=== PATIENT | male | born 1960 | race Caucasian/White ===

== ENCOUNTER 2024-12-02 01:44 | Emergency (ER) | payer OTHER, SELFPAY ==
[2024-12-02 01:48] VITALS: BP 184/118
--- NOTE | 2024-12-02 01:56 | ED.GENMED ---
History of Present Illness
<Josee Hawley PA-C - Last Filed: 12/02/24 06:27>
General
Chief Complaint: Chest Pain
Source: patient
Exam Limitations: none
Time Seen by Provider: 12/02/24 01:54
Nursing documentation reviewed up to this point in time: agreed with
History of Present Illness
History of Present Illness:
64-year-old male with no past medical history who presents to the emergency department today with concerns of chest pain. Patient states that this started 3 days ago. Patient states it started with a cough and a pressure in the middle of his
chest. Patient feels like his symptoms have started to get worse and he developed a fever on and off starting 2 days ago. He denies any sick contacts. He denies coughing up mucus or blood. He he has no family history of cardiac disease. He has
no personal cardiac history although he has seen a [facility] operator in the past for evaluation prior to surgery. He saw them for period time who prescribed blood pressure medication for him however his blood pressure came down they took him off the
medication and currently does not take anything or his blood pressure and currently he does not follow with a [facility] department operator. He notes intermittent mild shortness of breath after coughing spell, denies syncopal episodes, denies paresthesias in upper
or lower extremities.
Review of Systems
<Josee Hawley PA-C - Last Filed: 12/02/24 06:27>
Review of Systems
All Other Systems: ROS reviewed and negative except as documented in HPI and ROS
Phy Exam
<Josee Hawley PA-C - Last Filed: 12/02/24 06:27>
Physical Exam
Physical Exam:
General: Patient is well appearing and in no acute distress; non-toxic
Skin: Warm and dry, no rashes or lesions
Head: Normocephalic, atraumatic
Eyes: Sclera non-icteric. EOMs intact.
Cardiac: Tachycardia noted otherwise regular rhythm, no murmurs, no tenderness to palpation over the external chest wall
Pulm: Normal respiratory effort, no wheezes, rales, or rhonchi
Neuro: CN II-XII intact, no focal neurologic deficits.
Psychiatric: Appropriate mood and affect.
Scores
<Josee Hawley PA-C - Last Filed: 12/02/24 06:27>
Heart Score for Chest Pain Patients
STEMI patient?: No
History: Slightly or Non-Suspicious
ECG: Normal
Age: >/= 65 years
Risk Factors: 1 or 2 Risk Factors
Troponin: </= Normal Limit
Heart Score for Chest Pain Patients: 3
Heart Score Risk: 2.5% MACE over next 6 weeks
Sepsis
<MARI Robles Last Filed: 12/02/24 06:27>
Sepsis Screening
Sepsis Assessment: Sepsis Ruled Out
Sepsis Screen
Sepsis Screen: Sepsis Ruled Out
Date: 12/02/24
Time: 06:27
Course
<MARI Robles Last Filed: 12/02/24 06:27>
Orders/Labs/Results
Orders:
Orders
12/02/24 01:46
EKG [Electrocardiogram (*1)] Urgent
Reason for Study: Other
Other Reason for Exam: chest pressure
EKG- Treatment ONCE
12/02/24 02:05
CR Chest - 2 Views Urgent
Comment:
Reason For Exam: chest pain, sob
12/02/24 02:07
Cardiac Monitoring- Treatment ONCE
IV Insert/Care/Rem.- Treatment PRN
O2 Therapy [RESP] Urgent
Titrate/Wean O2 to maintain O2 sat greater than (%): 93
Special Instructions: TO MAINTAIN CONTINUOUS O2 SATS > OR = 93%
Pulse Ox/cont/shift [RESP] Urgent
Quantity: 1
Special Instructions: CONTINUOUS
12/02/24 02:09
Complete Blood Count/No Diff Urgent
Blood Culture Q20M
ARNOLDO Source: Blood/Venous
Specimen Description:
Comment: Urgent from separate sites. If patient screens positive for possible sepsis
12/02/24 02:10
COVID-19 Antigen Urgent
Source: Nasal Swab
Comprehensive Metabolic Panel Urgent
Lactic Acid Q4H
Comment: ON ICE, CANCEL 2ND ORDER IF FIRST LACTIC ACID LEVEL <2
Troponin I Urgent
Blood Culture Q20M
ARNOLDO Source: Blood/Venous
Specimen Description:
Comment: Urgent from separate sites. If patient screens positive for possible sepsis
Influenza A+B Rapid Molecular Urgent
ARNOLDO Source: Nasal Swab
Specimen Description:
12/02/24 02:16
0.9% Sodium Chloride 500 ml [Nss] 500 ml IV BOLUS
Acetaminophen [Tylenol] 1,000 mg PO NOW STA
Ketorolac [Toradol] 15 mg IV NOW STA
12/02/24 03:18
CT Chest PE Study Urgent
Comment:
Reason For Exam: pleuritic chest pain
Abnormal Lab Results
12/02/24 12/02/24
02:09 02:10
MCH 31.6 H pg
(27.0-31.0)
Glucose 191 H mg/dl
(70-99)
Calcium 10.3 H mg/dl
(8.4-10.2)
12/02/24 02:09
12/02/24 02:10
Vital Signs
Initial and Last Documented VS:
Initial Vital Signs
Temp Pulse Resp BP Pulse Ox
102.7 F H 132 20 184/118 94
12/02/24 01:48 12/02/24 01:48 12/02/24 01:48 12/02/24 01:48 12/02/24 01:48
Last Documented Vital Signs
Temp Pulse Resp BP Pulse Ox
101.4 F H 94 21 131/86 91
12/02/24 03:20 12/02/24 05:15 12/02/24 05:15 12/02/24 05:19 12/02/24 05:15
<Cha Mendiola, - Last Filed: 12/02/24 06:31>
Orders/Labs/Results
Orders:
Orders
12/02/24 01:46
EKG [Electrocardiogram (*1)] Urgent
Reason for Study: Other
Other Reason for Exam: chest pressure
EKG- Treatment ONCE
12/02/24 02:05
CR Chest - 2 Views Urgent
Comment:
Reason For Exam: chest pain, sob
12/02/24 02:07
Cardiac Monitoring- Treatment ONCE
IV Insert/Care/Rem.- Treatment PRN
O2 Therapy [RESP] Urgent
Titrate/Wean O2 to maintain O2 sat greater than (%): 93
Special Instructions: TO MAINTAIN CONTINUOUS O2 SATS > OR = 93%
Pulse Ox/cont/shift [RESP] Urgent
Quantity: 1
Special Instructions: CONTINUOUS
12/02/24 02:09
Complete Blood Count/No Diff Urgent
Blood Culture Q20M
ARNOLDO Source: Blood/Venous
Specimen Description:
Comment: Urgent from separate sites. If patient screens positive for possible sepsis
12/02/24 02:10
COVID-19 Antigen Urgent
Source: Nasal Swab
Comprehensive Metabolic Panel Urgent
Lactic Acid Q4H
Comment: ON ICE, CANCEL 2ND ORDER IF FIRST LACTIC ACID LEVEL <2
Troponin I Urgent
Blood Culture Q20M
ARNOLDO Source: Blood/Venous
Specimen Description:
Comment: Urgent from separate sites. If patient screens positive for possible sepsis
Influenza A+B Rapid Molecular Urgent
ARNOLDO Source: Nasal Swab
Specimen Description:
12/02/24 02:16
0.9% Sodium Chloride 500 ml [Nss] 500 ml IV BOLUS
Acetaminophen [Tylenol] 1,000 mg PO NOW STA
Ketorolac [Toradol] 15 mg IV NOW STA
12/02/24 03:18
CT Chest PE Study Urgent
Comment:
Reason For Exam: pleuritic chest pain
Abnormal Lab Results
12/02/24 12/02/24
02:09 02:10
MCH 31.6 H pg
(27.0-31.0)
Glucose 191 H mg/dl
(70-99)
Calcium 10.3 H mg/dl
(8.4-10.2)
12/02/24 02:09
12/02/24 02:10
Vital Signs
Initial and Last Documented VS:
Initial Vital Signs
Temp Pulse Resp BP Pulse Ox
102.7 F H 132 20 184/118 94
12/02/24 01:48 12/02/24 01:48 12/02/24 01:48 12/02/24 01:48 12/02/24 01:48
Last Documented Vital Signs
Temp Pulse Resp BP Pulse Ox
101.4 F H 94 21 131/86 91
12/02/24 03:20 12/02/24 05:15 12/02/24 05:15 12/02/24 05:19 12/02/24 05:15
Gordonlt;Josee Hawley PA-C - Last Filed: 12/02/24 06:27>
MDM/Problems Addressed
Differential Diagnosis Includes:
ddx include acute bronchitis, pneumonia, ACS, costochondritis
MDM/Problems Addressed:
64-year-old male with no past medical history who presents to the emergency department today with concerns of chest pain. Patient states that this started 3 days ago. It is associated with fever and cough. His chest x-ray is unremarkable. He
remains tachycardic after treatment of fever. His CBC is unremarkable, his CMP is significant for elevated fasting glucose. His troponin is normal. His ECG shows sinus tachycardia with left axis deviation likely related to fever. Pain worse with
inspiration. Patient was given Tylenol and Toradol. His CTA is negative for PE negative for pneumonia, suspect acute viral bronchitis versus costochondritis. Will trial Tessalon Perles and albuterol inhaler. Patient stable for discharge.
Chronic conditions affecting care:
htn
<Josee Hawley PA-C - Last Filed: 12/02/24 06:27>
*Pulse Oximetry
Patient hypoxic: no
*EKG
Interpreted by ED Provider?: Yes
EKG Intrepretation Date: 12/02/24
Interpretation: abnormal
Comparison EKG: no comparison EKG present
Heart Rate: 127
Rate: tachycardiac
Rhythm: sinus
Ber[place]: left axis deviation
*Critical Care Note
Total Time (30-74mins, 75-104mins- exclusive of procedures): Not Applicable
Data Reviewed
Review of Other/Old Records Reveals: Records (Reviewed ER physician documentation from 07/15/2017, patient seen for skin surface trauma, no discharge summaries to review in [facility])
Source: patient and records
<Josee Hawley PA-C - Last Filed: 12/02/24 06:27>
Update Note
Update Note:
Update chest x-ray unremarkable, patient continues to be tachycardic and satting at 92%, will send for CT PE study
ED Attending Note
<Josee Hawley PA-C - Last Filed: 12/02/24 06:27>
-
Portions of this chart may have been created with voice recognition software.� Occasional wrong word or��sound alike� substitutions may have occurred due to the inherent limitations of voice recognition software.
<Cha Mendiola, DO - Last Filed: 12/02/24 06:31>
ED Attending Note
Patient seen and examined by attending physician: Yes
I performed a history and physical exam of patient and discussed management with resident, I reviewed resident's note and agree with documented findings and plan of care.: Yes
ED Attending Note:
This is a 64-year-old gentleman with history of borderline hypertension, borderline diabetes who presents with several day history of cough accompanied with pleuritic type left parasternal chest pain. Left parasternal chest pain is worse with cough
and worse with deep breath. He developed a fever 24 hours ago accompanied with generalized aches, fatigue. He denies shortness of breath nor dyspnea on exertion but does note increased pain with deep breath. Cough has been nonproductive. He is a
non-smoker. No recent travel. No leg pain or swelling.
64-year-old gentleman appears his stated age, awake and alert, pleasant, appears in no acute distress. Acutely febrile with initial temperature 102.7 �F.
Heart is regular rhythm, mildly tachycardic.
Lungs are clear to auscultation. No rales or rhonchi nor wheezing. Mild reproducible tenderness left parasternal region.
Concern for pneumonia, pleurisy, bronchitis, costochondritis.
Pulse ox 92 to 93%.
Chest x-ray shows no acute findings, clear lung lepe. Normal heart size.
EKG shows sinus tachycardia otherwise unremarkable.
Labs are unremarkable save for elevated glucose 191. Patient has history of impaired fasting glucose/borderline diabetes. Troponin is normal. With ongoing chest discomfort over the past several days, ACS is unlikely. COVID and influenza are
negative.
Fever dissipating and along with this sinus tachycardia has improved but he remains mildly tachycardic with pulse ox 92 to 93%. Although no definitive risk factors for thromboembolism, left parasternal chest pain is certainly pleuritic in nature
thus we will check CT of the chest/PE study.
Discharge Plan
Departure
Patient Disposition: Home (Routine Discharge)
Date of Disposition: 12/02/24
Time of Disposition: 05:00
Patient with high blood pressure during this ER visit?: Yes
Condition: Good
Discharge Problem:
Acute bronchitis
Instructions: Acute bronchitis in adults, BLOOD PRESSURE
Prescriptions:
New
albuterol sulfate [Ventolin HFA] 90 mcg/actuation HFA aerosol inhaler
2 puff inhalation Q6H PRN (Reason: shortness of breath or wheezing) Qty: 6.7 0RF
benzonatate 100 mg capsule
100 mg PO TID PRN (Reason: Cough) Qty: 10 0RF
No Action
cefadroxil [Duricef] 500 MG capsule
500 mg PO BID Qty: 14 0RF
Referrals:
Topher Sr MD [Family Provider, Internal Medicine]
Chantelle Negrete MD [Active, Cardiology] - Call in 1-3 days for appt
Activity Restrictions/Additional Instructions:
Please call your PCP today to schedule a follow up appointment. You will likely need to restart blood pressure medication.
Tessalon Perles and the inhaler has been sent to your pharmacy.
PLEASE RETURN EMERGENCY DEPARTMENT SHOULD YOU DEVELOP FAINTING SPELLS, DIZZINESS, LIGHTHEADEDNESS, ACUTE WORSENING OF YOUR PAIN, PERSISTENT SHORTNESS OF BREATH/DIFFICULTY BREATHING, OR ANY OTHER SIGNS OR SYMPTOMS WORRISOME TO YOU.
Interventions
Interventions:
*Risk Screen - Suicide Last Done: 12/02/24 01:48
*General Assessment Last Done: 12/02/24 01:48
*Neglect/Abuse Screening Last Done: 12/02/24 01:48
*ED- Fall Risk Assessment Last Done: 12/02/24 01:48
*ED COVID-19 Vaccine History Last Done: 12/02/24 01:48
*Nursing Disposition Last Done: 12/02/24 05:19
ED- Cardiac Assessment Last Done: 12/02/24 02:43
Discharge Date and Time
Discharge Date/Time: 12/02/24 05:31
Print Language: [email or web address]
[2024-12-02 01:58] VITALS: BP 165/96
[2024-12-02 02:08] VITALS: BMI 31.1
[2024-12-02 02:23] LABS: Hematocrit 44.6 % (39.0-52.0); Hemoglobin 15.5 g/dL (13.0-18.0); Mean Corp Hgb Conc. 34.8 g/dL (33.0-37.0); Mean Corpuscular Hgb 31.6 pg (27.0-31.0); Mean Corpuscular Volume 90.8 fL (80.0-94.0); Mean Platelet Volume 9.3 fL (7.4-10.4); Platelet Count 195 10^3/uL (130-400); Red Blood Cell Count 4.91 10^6/uL (4.70-6.10); White Blood Cell Count 10.1 10^3/uL (4.8-10.8)
[2024-12-02 02:33] LABS: Lactic Acid 1.4 mmol/L (0.7-2.0)
[2024-12-02 02:35] LABS: ALT (SGPT) 42 U/L (0-50); AST (SGOT) 42 U/L (17-59); Albumin 4.5 g/dl (3.5-5.0); Alkaline Phosphatase 80 U/L (38-126); Blood Urea Nitrogen 18 mg/dl (9-20); COVID-19 Antigen Negative (Negative); Calcium 10.3 mg/dl (8.4-10.2); Carbon Dioxide 25 mmol/L (22-30); Chloride 104 mmol/L (98-107); Estimated Creatinine Clearance 102 ml/min; Glucose 191 mg/dl (70-99); Potassium 4.5 mmol/L (3.5-5.1); Sodium 136 mmol/L (135-145); Total Bilirubin 0.9 mg/dl (0.2-1.3); Total Protein 7.3 g/dl (6.3-8.2); eGFR > 60.00
[2024-12-02] MEDS: TORADOL 15 MG IV (02:45)
[2024-12-02] MEDS: TYLENOL 1000 MG PO (02:45)
[2024-12-02] MEDS: NSS 500 IV (02:47)
[2024-12-02 03:16] VITALS: BP 172/100
[2024-12-02 04:00] VITALS: BP 158/86
[2024-12-02 05:19] VITALS: BP 131/86
== END 2024-12-02 05:31 | disposition home or self-care (01) ==
LOC: EMR 01:44
PROVIDERS: Physician Assistant; EMERGENCY PHYSICIAN Emergency Medicine; FAMILY PHYSICIAN Internal Medicine
DX: J20.9 Acute bronchitis, unspecified (principal); R53.83 Other fatigue; R00.0 Tachycardia, unspecified; Z11.52 Encounter for screening for COVID-19; R03.0 Elevated blood-pressure reading, without diagnosis of hypertension; R73.03 Prediabetes
CPT/HCPCS: 99285; 96374; 96361; 71046; 71275; 80053; 83605; 84484; 85027; 87040; 87502; 87811; 93005; Q9967